=== PATIENT | female | born 1965 | race African-American/Black ===

== ENCOUNTER 2024-12-18 16:07 | Emergency (ER) | payer MEDICAID ==
[~2024-12-18] VITALS: Ht 165.1 cm; Wt 63.5 kg
[2024-12-18 16:30] VITALS: BP 151/103
[2024-12-18 16:45] VITALS: BP 129/86
[2024-12-18] MEDS ORDERED: KETOROLAC TROMETHAMINE 30 MG/ML SDV IM ONE (16:55)
[2024-12-18] MEDS ORDERED: AMOX/K CLAV875 M1 PO (17:01)
[2024-12-18 17:06] VITALS: BP 129/86
== END 2024-12-18 17:12 | disposition home or self-care (01) ==
LOC: ED 16:07
DX: J32.9 Chronic sinusitis, unspecified (principal)

== ENCOUNTER 2024-12-28 11:17 | Emergency (ER) | payer OTHER ==
[~2024-12-28] VITALS: Ht 165.1 cm; Wt 72.0 kg
[2024-12-28] VITALS (9 sets, daily range): BP systolic 141–170; BP diastolic 81–109
[~2024-12-28 11:17] MED LIST: AMOX/K CLAV875 M1 PO
[2024-12-28] MEDS ORDERED: LEVOCETIRIZINE D5 MG PO (12:55)
[2024-12-28] MEDS ORDERED: VIBRAMYCIN100 M2 PO (12:55)
[2024-12-28] MEDS ORDERED: AZELASTINE HCL0.1 % (12:55)
[2024-12-28 13:15] LABS: URINE BILIRUBIN - DIPSTICK Negative (NEGATIVE); URINE BLOOD DIPSTICK Small (NEGATIVE); URINE CLARITY Clear; URINE GLUCOSE - DIPSTICK Negative (NEGATIVE); URINE KETONE Negative (NEGATIVE); URINE LEUK ESTERASE Negative (Negative); URINE NITRITE - DIPSTICK Negative (Negative); URINE PROTEIN - DIPSTICK Negative (NEG-TRACE); URINE SPECIFIC GRAVITY 1.015; URINE UROBILINOGEN - DIPSTICK 0.2 E.U./dL (0.2)
[2024-12-28 13:17] LABS: URINE COLOR Yellow
[2024-12-28 13:28] LABS: URINE RBC 0-2 RBC/hpf (0-5); URINE WBC 0-2 WBC/hpf (0-5)
[2024-12-28 13:29] LABS: URINE SQUAMOUS EPITHELIAL CELL FEW EPI/hpf (0-FEW)
== END 2024-12-28 13:04 | disposition home or self-care (01) ==
LOC: ED 11:17
PROVIDERS: Emergency Medicine
DX: J32.9 Chronic sinusitis, unspecified (principal); Z20.822 Contact with and (suspected) exposure to COVID-19